=== PATIENT | female | born 1975 | race Caucasian/White ===

== ENCOUNTER 2021-07-02 11:32 | Emergency (ER) | payer SELFPAY ==
[~2021-07-02] VITALS: Ht 154.9 cm; Wt 67.0 kg
[2021-07-02 11:49] VITALS: BP 113/76
== END 2021-07-02 15:00 | disposition left against medical advice (07) ==
LOC: ER 12:24
DX: R10.2 Pelvic and perineal pain (principal)
CPT/HCPCS: 99281